=== PATIENT | female | born 2000 | race Caucasian/White ===

== ENCOUNTER 2024-01-03 22:21 | Emergency (ER) | payer MEDICAID ==
[~2024-01-03] VITALS: Ht 160 cm; Wt 61.2 kg
[2024-01-03 22:24] VITALS: BP_SYST 132; PULSE 160; RESP 18; TEMP 98.5; O2SAT 99
== END 2024-01-03 22:40 | disposition home or self-care (01) ==
LOC: SED 22:21
DX: R00.0 Tachycardia, unspecified (principal); Z79.899 Other long term (current) drug therapy
CPT/HCPCS: 93005; 99283